=== PATIENT | male | born 1970 | race African-American/Black ===

== ENCOUNTER 2019-04-28 17:43 | Inpatient (IN) | payer OTHER ==
[2019-04-28 20:27] VITALS: BMI 25.1
--- NOTE | 2019-04-28 22:32 | HP ---
CIWA Score Nausea/Vomitin-No Nausea/No Vomiting Muscle Tremors: None Anxiety: 0-No Anxiety, at Ease Agitation: 1-Slight > Activity Paroxysmal Sweats: No Perspiration Orientation: 0-Oriented Tacttile Disturbances: 0-None Auditory Disturbances: 0-None Visual Disturbances: 0-None Headache: 0-None Present CIWA-Ar Total Score: 1 - Admission Criteria [facility]AS[facility] Guidelines: Admission for Medically Managed Detox: Requires at least one of the followin. CIWA greater than 12 2. Seizures within the past 24 hours 3. Delirium tremens within the past 24 hours 4. Hallucinations within the past 24 hours 5. Acute intervention needed for co occurring medical disorder 6. Acute intervention needed for co occurring psychiatric disorder 7. Severe withdrawal that cannot be handled at a lower level of care (continued vomiting, continued diarrhea, abnormal vital signs) requiring intravenous medication and/or fluids 8. [facility] Chief Complaint: seeking rehab for alcohol abuse and cocaine dependence Allergies/Adverse Reactions: Allergies Allergy/AdvReac Type Severity Reaction Status Date / Time No Known Allergies Allergy Verified 04/28/19 20:14 History of Present Illness: 48 Y.O. MALE WITH HX/O ALCOHOLISM AND COCAINE DEPENDENCE HERE FOR REHAB. CLIENT REPORTS HIS LAST DRINK WAS 1 WEEK AGO PRIOR TO 1 DAY AGO WHEN HE HAD 1 CAN OF BEER. HE REPORTS HE USUALLY DRINKS 3 X A WEEK 1 PINT OF VODKA. HE PRESENTLY DENIES ANY WITHDRAWAL SX'. DENIES HX/O BLACKOUTS/ SEIZURES. REPORTS LONGEST CLEAN TIME 1 YEAR. RELAPSING IN 2012. WITH INTERMITTENT SHORT PERIOD OF CLEAN TIME SINCE. 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, PUBLIC ASSISTANCE, DENIES PMHX- RIGHT INGUINAL HERNIA, DM, HLD PSYCH- DEPRESSION,SCHIZOAFFECTIVE D/O Exam Limitations: No Limitations - Ebola screening Have you traveled outside of the country in the last 21 days: No (N) Have you had contact with anyone from an Ebola affected area: No Do you have a fever: No - Review of Systems Constitutional: Changes in sleep (DUE PAIN) EENT: reports: Other (DENTURES BOTH) Respiratory: reports: No Symptoms reported Cardiac: reports: No Symptoms Reported GI: reports: No Symptoms Reported : reports: No Symptoms Reported Musculoskeletal: reports: No Symptoms Reported Integumentary: reports: No Symptoms Reported Neuro: reports: Unsteady Gait ([place] WITH CANE DUE TO R GROIN PAIN) Endocrine: reports: Other (HX/O DM) Hematology: reports: No Symptoms Reported Psychiatric: reports: Orientated x3 Other Systems: Reviewed and Negative Patient History - Patient Medical History Hx Anemia: No Hx Asthma: No Hx Chronic Obstructive Pulmonary Disease (COPD): No Hx Cancer: No Hx Cardiac Disorders: No Hx Congestive Heart Failure: No Hx Hypertension: No Hx Hypercholesterolemia: Yes Hx Pacemaker: No HX Cerebrovascular Accident: No Hx Seizures: No Hx Dementia: No Hx Diabetes: Yes Hx Gastrointestinal Disorders: No Hx Liver Disease: No Hx Genitourinary Disorders: No Hx Sexually Transmitted Disorders: No Hx Renal Disease (ESRD): No Hx Thyroid Disease: No Hx Human Immunodeficiency Virus (HIV): No Hx Hepatitis C: No Hx Depression: Yes Hx Suicide Attempt: No Hx Bipolar Disorder: No Hx Schizophrenia: No Other Medical History: SCHIZOAFFECTIVE, R INGUINAL HERNIA - Patient Surgical History Past Surgical History: No - PPD History Previous Implant?: Yes Documented Results: Negative w/proof Implanted On Prior [facility] Admission?: No PPD to be Administered?: Yes - Smoking Cessation Smoking history: Former smoker Have you smoked in the past 12 months: No If you are a former smoker, when did you quit?: 1992 Hx Chewing Tobacco Use: No Initiated information on smoking cessation: No - Substance & Tx. History Hx Alcohol Use: Yes Hx Substance Use: Yes Substance Use Type: Alcohol, Cocaine Hx Substance Use Treatment: Yes ([facility]) - Substances abused Alcohol Substance route: Oral Frequency: 3-6 times per week Amount used: 1-2pints of vodka 3x a week Age of first use: 15 Date of last use: 04/27/19 Cocaine Other (specify): CRACK Substance route: Smoking (AND NASALLY) Frequency: 3-6 times per week Amount used: $200 Age of first use: 15 Date of last use: 04/25/19 Family Disease History - Family Disease History Family History: Denies Admission Physical Exam S - Vital Signs Vital Signs: Vital Signs - 24 hr 04/28/19 20:24 Temperature 97.1 F L Pulse Rate 54 L Respiratory 16 Rate Blood Pressure 114/66 - Physical General Appearance: Yes: Mild Distress (DUE TO R GROIN PAIN CLIENT WAS SEEN AT [facility] ER NO INTERVENTION HE WAS SEEN BY SURGICAL TEAM AT [facility] HE WAS ADMITTED ON 02/2019 AND SX INTERVENTION WAS RECOMMENDED) HEENTM: Yes: EOMI, Normocephalic, Normal Voice, MARY KAY, Pharynx Normal, Other ( DENTURES BOTH) Respiratory: Yes: Chest Non-Tender, Lungs Clear, Normal Breath Sounds, No Respiratory Distress, No Accessory Muscle Use Neck: Yes: No masses,lesions,Nodules, Supple, Trachea in good position Breast: Yes: Breast Exam Deferred Cardiology: Yes: Regular Rhythm, Regular Rate, S1, S2 Abdominal: Yes: Normal Bowel Sounds, Non Tender, Flat, Soft, Organomegaly Genitourinary: Yes: Within Normal Limits Back: Yes: Normal Inspection Musculoskeletal: Yes: Other (AMBULATES WITH CANE 2/2 TO R INGUINAL PAIN) Extremities: Yes: Normal Capillary Refill, Non-Tender, Other (LIMITED ROM TO LEFT LOWER EXTREMITY DUE TO PAIN) Neurological: Yes: Fully Oriented, Alert, Motor Strength 5/5 Integumentary: Yes: Dry, Warm Lymphatic: Yes: Within Normal Limits, Tenderness (R INGUINAL DUE TO HERNIA) - Diagnostic (1) Uncomplicated alcohol dependence Current Visit: Yes Status: Acute (2) Cocaine dependence, uncomplicated Current Visit: Yes Status: Chronic (3) Nicotine dependence Current Visit: Yes Status: Chronic Qualifiers: Nicotine product type: cigarettes Substance use status: uncomplicated Qualified Code(s): F17.210 - Nicotine dependence, cigarettes, uncomplicated (4) HLD (hyperlipidemia) Current Visit: Yes Status: Chronic (5) HTN (hypertension) Current Visit: Yes Status: Chronic Qualifiers: Hypertension type: essential hypertension Qualified Code(s): I10 - Essential (primary) hypertension (6) Schizoaffective disorder Current Visit: Yes Status: Chronic (7) Depression Current Visit: Yes Status: Chronic (8) Right inguinal hernia Current Visit: Yes Status: Chronic (9) Ambulates with cane Current Visit: Yes Status: Chronic Cleared for Admission [facility] - Detox or Rehab Detox Regimen/Protocol: Not Applicable Claeared for Rehab Admission: No Breathalyzer - Breathalyzer Breathalyzer: 0 Urine Drug Screen - Test Device Lot number: [id number] Expiration date: 09/06/21 - Results Drug screen NEGATIVE: No Urine drug screen results: NASEEM-Cocaine, MET-Methamphetamine Inpatient Rehab Admission - Rehab Decision to Admit Inpatient rehab admission?: Yes - Initial Determination Are CD services needed?: Yes Free of communicable disease: Yes Not in need of hospitalization: Yes - Rehab Admission Criteria Previous failed treatment: Yes Poor recovery environment: Yes Comorbidities: Yes Lacks judgement: No Patient is meeting Inpatient Rehab admission criteria:: Yes
[2019-04-28] MEDS ORDERED: MAGNESIUM HYDROX 2400MG/30ML ORAL SUSPENSION 30 ML CUP PO PRN (22:41)
[2019-04-28] MEDS ORDERED: LOPERAMIDE HCL 2 MG CAPSULE PO PRN (22:41)
[2019-04-28] MEDS ORDERED: MAGNESIUM CITRATE 300 ML BOTTLE PO PRN (22:41)
[2019-04-28] MEDS ORDERED: guaiFENesin 200 MG/10 ML 10 ML UNIT-DOSE CUPS PO PRN (22:41)
[2019-04-28] MEDS ORDERED: MENTHOL/PHENOL 1 EACH UD MM PRN (22:41)
[2019-04-28] MEDS ORDERED: ACETAMINOPHEN 325 MG TABLET (FP) PO PRN (22:41)
[2019-04-28] MEDS ORDERED: MAG HYDROX/AL HYDROX/SIMETH 30 ML UNIT-DOSE CUP PO PRN (22:41)
[2019-04-28] MEDS ORDERED: hydrOXYzine PAMOATE 50 MG CAPSULE (FP) PO PRN (22:41)
[2019-04-28] MEDS ORDERED: P-EPHED 60MG/TRIPROLIDI 2.5MG TABLET PO PRN (22:41)
[2019-04-29] MEDS: metFORMIN HCL 500 MG TABLET (FP) PO SCH ×2 (07:12→18:47)
[2019-04-29] MEDS ORDERED: metFORMIN HCL 500 MG TABLET (FP) PO SCH (08:00)
[2019-04-29] MEDS: PRENATAL VITAMINS W/ FOLIC ACID TABLET (FP) PO SCH (11:20)
[2019-04-29 12:15] LABS: HEMATOCRIT 38.2 % (35.4-49); HEMOGLOBIN 12.7 GM/dL (11.7-16.9); MCH 29.1 pg (25.7-33.7); MCHC 33.2 g/dl (32.0-35.9); MEAN CELL VOLUME 87.7 fl (80-96); MEAN PLT VOLUME 8.8 fl (7.5-11.1); PLATELET COUNT 200 K/MM3 (134-434); RBC 4.35 M/mm3 (4.00-5.60); RDW 13.6 % (11.9-15.9); WHITE BLOOD COUNT 4.2 K/mm3 (4.0-10.0)
[2019-04-29 12:19] LABS: ALBUMIN 3.3 g/dl (3.4-5.0); BILIRUBIN,TOTAL 0.3 mg/dL (0.2-1); BLOOD UREA NITROGEN 11.2 mg/dL (7-18); CALCIUM 8.8 mg/dL (8.5-10.1); POTASSIUM 4.4 mmol/L (3.5-5.1); TOT PROT 6.2 g/dl (6.4-8.2)
--- NOTE | 2019-04-29 13:43 | EKG ---
Test Reason : Blood Pressure : / mmHG Vent. Rate : 065 BPM Atrial Rate : 065 BPM P-R Int : 228 ms QRS Dur : 096 ms QT Int : 410 ms P-R-T Axes : 072 068 069 degrees QTc Int : 426 ms SINUS RHYTHM WITH 1ST DEGREE A-V BLOCK OTHERWISE NORMAL ECG NO PREVIOUS ECGS AVAILABLE Confirmed by Paul San MD ([id number]) on 04/29/2019 1:42:31 PM Referred By: Confirmed By:Paul San MD
[2019-04-29] MEDS: MELATONIN 5 MG TABLETS PO PRN (21:34)
[2019-04-29] MEDS: ATORVASTATIN CA 20 MG TABLET (FP) PO SCH (21:34)
[2019-04-29] MEDS: THIAMINE HCL 100 MG TABLET (FP) PO SCH (21:34)
[2019-04-30] MEDS: metFORMIN HCL 500 MG TABLET (FP) PO SCH ×2 (07:28→17:49)
[2019-04-30] MEDS: PRENATAL VITAMINS W/ FOLIC ACID TABLET (FP) PO SCH (10:27)
[2019-04-30 12:48] LABS: PH,URINE 7.5 (5.0-8.0); URINE APPEARANCE CLEAR; URINE BILIRUBIN NEGATIVE (NEGATIVE); URINE COLOR YELLOW; URINE GLUCOSE (UA) 1+ (NEGATIVE); URINE KETONE NEGATIVE (NEGATIVE); URINE LEUK ESTERASE NEGATIVE (NEGATIVE); URINE NITRITE NEGATIVE (NEGATIVE); URINE PROTEIN NEGATIVE (NEGATIVE); URINE UROBILINOGEN 0.2 mg/dL (0.2-1.0)
[2019-04-30] MEDS: ATORVASTATIN CA 20 MG TABLET (FP) PO SCH (21:19)
[2019-04-30] MEDS: MELATONIN 5 MG TABLETS PO PRN (21:19)
[2019-04-30] MEDS: THIAMINE HCL 100 MG TABLET (FP) PO SCH (21:19)
[2019-04-30] MEDS: IBUPROFEN 400 MG TABLET (FP) PO PRN (21:20)
[2019-05-01] MEDS: metFORMIN HCL 500 MG TABLET (FP) PO SCH ×2 (07:38→16:48)
[2019-05-01] MEDS: IBUPROFEN 400 MG TABLET (FP) PO PRN (09:38)
[2019-05-01] MEDS: PRENATAL VITAMINS W/ FOLIC ACID TABLET (FP) PO SCH (09:38)
[2019-05-01] MEDS: THIAMINE HCL 100 MG TABLET (FP) PO SCH (21:38)
[2019-05-01] MEDS: MELATONIN 5 MG TABLETS PO PRN (21:38)
[2019-05-01] MEDS: ATORVASTATIN CA 20 MG TABLET (FP) PO SCH (21:38)
[2019-05-02] MEDS: metFORMIN HCL 500 MG TABLET (FP) PO SCH ×2 (07:38→16:53)
[2019-05-02] MEDS: PRENATAL VITAMINS W/ FOLIC ACID TABLET (FP) PO SCH (10:55)
[2019-05-02] MEDS: MELATONIN 5 MG TABLETS PO PRN (21:13)
[2019-05-02] MEDS: THIAMINE HCL 100 MG TABLET (FP) PO SCH (21:13)
[2019-05-02] MEDS: IBUPROFEN 400 MG TABLET (FP) PO PRN (21:14)
[2019-05-02] MEDS: ATORVASTATIN CA 20 MG TABLET (FP) PO SCH (21:14)
[2019-05-03] MEDS: metFORMIN HCL 500 MG TABLET (FP) PO SCH ×2 (06:20→16:54)
[2019-05-03] MEDS: PRENATAL VITAMINS W/ FOLIC ACID TABLET (FP) PO SCH (09:26)
[2019-05-03] MEDS: IBUPROFEN 400 MG TABLET (FP) PO PRN (21:33)
[2019-05-03] MEDS: ATORVASTATIN CA 20 MG TABLET (FP) PO SCH (21:33)
[2019-05-03] MEDS: THIAMINE HCL 100 MG TABLET (FP) PO SCH (21:33)
[2019-05-03] MEDS: MELATONIN 5 MG TABLETS PO PRN (21:33)
[2019-05-04] MEDS: metFORMIN HCL 500 MG TABLET (FP) PO SCH ×2 (07:35→17:01)
[2019-05-04] MEDS: PRENATAL VITAMINS W/ FOLIC ACID TABLET (FP) PO SCH (09:49)
[2019-05-04] MEDS: IBUPROFEN 400 MG TABLET (FP) PO PRN (09:50)
[2019-05-04] MEDS: THIAMINE HCL 100 MG TABLET (FP) PO SCH (21:31)
[2019-05-04] MEDS: ATORVASTATIN CA 20 MG TABLET (FP) PO SCH (21:31)
[2019-05-05] MEDS: metFORMIN HCL 500 MG TABLET (FP) PO SCH ×2 (07:35→16:46)
[2019-05-05] MEDS: PRENATAL VITAMINS W/ FOLIC ACID TABLET (FP) PO SCH (10:00)
--- NOTE | 2019-05-05 13:19 | PN ---
[facility] Progress Note (SOAP) Subjective: Patient quantiferon was positive. Denies night sweats, fevers, productive cough. Objective: General: appropriate affect Respiratory: Lungs Clear, Normal Breath Sounds, No Respiratory Distress, No Accessory Muscle Use Neck: Supple, Trachea in good position Cardiology: Regular Rhythm, Regular Rate, S1, S2 Abdominal: Bowel Sounds, Non Tender, Flat, Soft, Organomegaly Lymph nodes: non-palpable 05/05/19 13:21 Assessment: +quantiferon results 05/05/19 13:23 Plan: CXR ordered.
[2019-05-05] MEDS: ATORVASTATIN CA 20 MG TABLET (FP) PO SCH (21:41)
[2019-05-05] MEDS: THIAMINE HCL 100 MG TABLET (FP) PO SCH (21:41)
[2019-05-05] MEDS: MELATONIN 5 MG TABLETS PO PRN (21:43)
[2019-05-06] MEDS: metFORMIN HCL 500 MG TABLET (FP) PO SCH ×2 (07:36→16:47)
[2019-05-06] MEDS: PRENATAL VITAMINS W/ FOLIC ACID TABLET (FP) PO SCH (10:03)
[2019-05-06] MEDS: THIAMINE HCL 100 MG TABLET (FP) PO SCH (21:19)
[2019-05-06] MEDS: MELATONIN 5 MG TABLETS PO PRN (21:19)
[2019-05-06] MEDS: ATORVASTATIN CA 20 MG TABLET (FP) PO SCH (21:19)
[2019-05-07] MEDS: metFORMIN HCL 500 MG TABLET (FP) PO SCH ×2 (07:23→17:02)
[2019-05-07] MEDS: PRENATAL VITAMINS W/ FOLIC ACID TABLET (FP) PO SCH (10:02)
[2019-05-07] MEDS: ATORVASTATIN CA 20 MG TABLET (FP) PO SCH (21:40)
[2019-05-07] MEDS: MELATONIN 5 MG TABLETS PO PRN (21:40)
[2019-05-07] MEDS: THIAMINE HCL 100 MG TABLET (FP) PO SCH (21:40)
[2019-05-08] MEDS: metFORMIN HCL 500 MG TABLET (FP) PO SCH ×2 (07:33→17:00)
[2019-05-08] MEDS: PRENATAL VITAMINS W/ FOLIC ACID TABLET (FP) PO SCH (09:39)
[2019-05-08] MEDS: THIAMINE HCL 100 MG TABLET (FP) PO SCH (21:25)
[2019-05-08] MEDS: MELATONIN 5 MG TABLETS PO PRN (21:25)
[2019-05-08] MEDS: ATORVASTATIN CA 20 MG TABLET (FP) PO SCH (21:25)
[2019-05-09] MEDS: metFORMIN HCL 500 MG TABLET (FP) PO SCH ×2 (07:33→16:44)
[2019-05-09] MEDS: PRENATAL VITAMINS W/ FOLIC ACID TABLET (FP) PO SCH (10:23)
[2019-05-09] MEDS: ATORVASTATIN CA 20 MG TABLET (FP) PO SCH (21:31)
[2019-05-09] MEDS: THIAMINE HCL 100 MG TABLET (FP) PO SCH (21:31)
[2019-05-09] MEDS: MELATONIN 5 MG TABLETS PO PRN (21:32)
[2019-05-10] MEDS: PRENATAL VITAMINS W/ FOLIC ACID TABLET (FP) PO SCH (09:43)
[2019-05-10] MEDS: metFORMIN HCL 500 MG TABLET (FP) PO SCH ×2 (16:47→17:15)
[2019-05-10] MEDS: ATORVASTATIN CA 20 MG TABLET (FP) PO SCH (21:22)
[2019-05-10] MEDS: THIAMINE HCL 100 MG TABLET (FP) PO SCH (21:23)
[2019-05-11] MEDS: metFORMIN HCL 500 MG TABLET (FP) PO SCH ×2 (07:57→16:56)
[2019-05-11] MEDS: PRENATAL VITAMINS W/ FOLIC ACID TABLET (FP) PO SCH (09:57)
[2019-05-11] MEDS: ATORVASTATIN CA 20 MG TABLET (FP) PO SCH (21:31)
[2019-05-11] MEDS: THIAMINE HCL 100 MG TABLET (FP) PO SCH (21:31)
[2019-05-11] MEDS: MELATONIN 5 MG TABLETS PO PRN (21:31)
[2019-05-12] MEDS: metFORMIN HCL 500 MG TABLET (FP) PO SCH ×2 (07:22→16:48)
[2019-05-12] MEDS: PRENATAL VITAMINS W/ FOLIC ACID TABLET (FP) PO SCH (09:57)
[2019-05-12] MEDS: THIAMINE HCL 100 MG TABLET (FP) PO SCH (21:12)
[2019-05-12] MEDS: ATORVASTATIN CA 20 MG TABLET (FP) PO SCH (21:12)
[2019-05-12] MEDS: MELATONIN 5 MG TABLETS PO PRN (21:13)
[2019-05-13] MEDS: metFORMIN HCL 500 MG TABLET (FP) PO SCH ×2 (07:03→17:00)
[2019-05-13] MEDS: PRENATAL VITAMINS W/ FOLIC ACID TABLET (FP) PO SCH (10:07)
[2019-05-13] MEDS: THIAMINE HCL 100 MG TABLET (FP) PO SCH (21:24)
[2019-05-13] MEDS: ATORVASTATIN CA 20 MG TABLET (FP) PO SCH (21:24)
[2019-05-13] MEDS: MELATONIN 5 MG TABLETS PO PRN (21:24)
[2019-05-14] MEDS: metFORMIN HCL 500 MG TABLET (FP) PO SCH ×2 (07:31→16:34)
[2019-05-14] MEDS: PRENATAL VITAMINS W/ FOLIC ACID TABLET (FP) PO SCH (10:21)
[2019-05-14] MEDS: THIAMINE HCL 100 MG TABLET (FP) PO SCH (21:40)
[2019-05-14] MEDS: MELATONIN 5 MG TABLETS PO PRN (21:40)
[2019-05-14] MEDS: ATORVASTATIN CA 20 MG TABLET (FP) PO SCH (21:40)
[2019-05-15] MEDS: metFORMIN HCL 500 MG TABLET (FP) PO SCH ×2 (06:28→16:41)
[2019-05-15] MEDS: PRENATAL VITAMINS W/ FOLIC ACID TABLET (FP) PO SCH (10:55)
[2019-05-15] MEDS: THIAMINE HCL 100 MG TABLET (FP) PO SCH (21:22)
[2019-05-15] MEDS: MELATONIN 5 MG TABLETS PO PRN (21:22)
[2019-05-15] MEDS: ATORVASTATIN CA 20 MG TABLET (FP) PO SCH (21:22)
[2019-05-16] MEDS: metFORMIN HCL 500 MG TABLET (FP) PO SCH ×2 (06:54→16:40)
[2019-05-16] MEDS: PRENATAL VITAMINS W/ FOLIC ACID TABLET (FP) PO SCH (10:39)
[2019-05-16] MEDS: MELATONIN 5 MG TABLETS PO PRN (21:36)
[2019-05-16] MEDS: ATORVASTATIN CA 20 MG TABLET (FP) PO SCH (21:36)
[2019-05-16] MEDS: THIAMINE HCL 100 MG TABLET (FP) PO SCH (21:36)
[2019-05-17] MEDS: metFORMIN HCL 500 MG TABLET (FP) PO SCH ×2 (06:30→17:08)
[2019-05-17] MEDS: PRENATAL VITAMINS W/ FOLIC ACID TABLET (FP) PO SCH (11:15)
[2019-05-17] MEDS: THIAMINE HCL 100 MG TABLET (FP) PO SCH (21:51)
[2019-05-17] MEDS: ATORVASTATIN CA 20 MG TABLET (FP) PO SCH (21:51)
[2019-05-17] MEDS: MELATONIN 5 MG TABLETS PO PRN (21:51)
[2019-05-18] MEDS: metFORMIN HCL 500 MG TABLET (FP) PO SCH ×2 (06:23→16:34)
[2019-05-18] MEDS: PRENATAL VITAMINS W/ FOLIC ACID TABLET (FP) PO SCH (09:49)
[2019-05-18] MEDS: THIAMINE HCL 100 MG TABLET (FP) PO SCH (21:17)
[2019-05-18] MEDS: MELATONIN 5 MG TABLETS PO PRN (21:17)
[2019-05-18] MEDS: ATORVASTATIN CA 20 MG TABLET (FP) PO SCH (21:17)
[2019-05-19] MEDS: metFORMIN HCL 500 MG TABLET (FP) PO SCH ×2 (06:25→16:39)
[2019-05-19] MEDS: PRENATAL VITAMINS W/ FOLIC ACID TABLET (FP) PO SCH (10:05)
[2019-05-19] MEDS: THIAMINE HCL 100 MG TABLET (FP) PO SCH (21:46)
[2019-05-19] MEDS: ATORVASTATIN CA 20 MG TABLET (FP) PO SCH (21:46)
[2019-05-19] MEDS: MELATONIN 5 MG TABLETS PO PRN (21:47)
[2019-05-20] MEDS: metFORMIN HCL 500 MG TABLET (FP) PO SCH ×2 (06:25→16:54)
[2019-05-20] MEDS: PRENATAL VITAMINS W/ FOLIC ACID TABLET (FP) PO SCH (09:48)
[2019-05-20] MEDS: THIAMINE HCL 100 MG TABLET (FP) PO SCH (21:37)
[2019-05-20] MEDS: MELATONIN 5 MG TABLETS PO PRN (21:37)
[2019-05-20] MEDS: ATORVASTATIN CA 20 MG TABLET (FP) PO SCH (21:37)
[2019-05-21] MEDS: metFORMIN HCL 500 MG TABLET (FP) PO SCH ×2 (06:51→16:28)
[2019-05-21] MEDS: PRENATAL VITAMINS W/ FOLIC ACID TABLET (FP) PO SCH (09:57)
[2019-05-21] MEDS: THIAMINE HCL 100 MG TABLET (FP) PO SCH (21:23)
[2019-05-21] MEDS: MELATONIN 5 MG TABLETS PO PRN (21:23)
[2019-05-21] MEDS: ATORVASTATIN CA 20 MG TABLET (FP) PO SCH (21:23)
[2019-05-22] MEDS: metFORMIN HCL 500 MG TABLET (FP) PO SCH ×2 (06:57→16:42)
[2019-05-22] MEDS: PRENATAL VITAMINS W/ FOLIC ACID TABLET (FP) PO SCH (09:56)
[2019-05-22] MEDS: MELATONIN 5 MG TABLETS PO PRN (21:31)
[2019-05-22] MEDS: THIAMINE HCL 100 MG TABLET (FP) PO SCH (21:31)
[2019-05-22] MEDS: ATORVASTATIN CA 20 MG TABLET (FP) PO SCH (21:31)
[2019-05-23] MEDS: metFORMIN HCL 500 MG TABLET (FP) PO SCH ×2 (07:25→16:23)
[2019-05-23] MEDS: PRENATAL VITAMINS W/ FOLIC ACID TABLET (FP) PO SCH (10:07)
[2019-05-23] MEDS: MELATONIN 5 MG TABLETS PO PRN (21:15)
[2019-05-23] MEDS: ATORVASTATIN CA 20 MG TABLET (FP) PO SCH (21:15)
[2019-05-23] MEDS: THIAMINE HCL 100 MG TABLET (FP) PO SCH (21:15)
[2019-05-24] MEDS: metFORMIN HCL 500 MG TABLET (FP) PO SCH ×2 (06:48→17:00)
[2019-05-24] MEDS: PRENATAL VITAMINS W/ FOLIC ACID TABLET (FP) PO SCH (10:50)
[2019-05-24] MEDS: THIAMINE HCL 100 MG TABLET (FP) PO SCH (21:21)
[2019-05-24] MEDS: ATORVASTATIN CA 20 MG TABLET (FP) PO SCH (21:21)
[2019-05-25 06:40] VITALS: TEMP 97.5
[2019-05-25] MEDS: metFORMIN HCL 500 MG TABLET (FP) PO SCH ×2 (06:46→17:00)
[2019-05-25] MEDS: PRENATAL VITAMINS W/ FOLIC ACID TABLET (FP) PO SCH (10:12)
[2019-05-25] MEDS: ATORVASTATIN CA 20 MG TABLET (FP) PO SCH (21:45)
[2019-05-25] MEDS: THIAMINE HCL 100 MG TABLET (FP) PO SCH (21:45)
[2019-05-25] MEDS: MELATONIN 5 MG TABLETS PO PRN (21:46)
[2019-05-26] MEDS: metFORMIN HCL 500 MG TABLET (FP) PO SCH (07:07)
[2019-05-26 07:11] VITALS: BP 139/74; PULSE 82
[2019-05-26] MEDS: PRENATAL VITAMINS W/ FOLIC ACID TABLET (FP) PO SCH (10:39)
--- NOTE | 2019-05-26 12:19 | PN ---
[facility] Progress Note Note: Rehab discharge note: Patient admitted to rehab on 04/28/19 for alcohol and cocaine dependence. Patient completed rehab today and states he accomplished all goals. Patient is scheduled for aftercare at [facility] on 05/28/19 at 10am. Patient was able to attend group meetings and maintain motivation for sobriety during admission. Patient is medically stable and no SI/HI reported. Patient is encouraged to continue group meetings and aftercare to maintain sobriety. ROS : negative for CP, SOB and dizziness Ambulatory Orders Atorvastatin Ca [Lipitor] 20 mg PO HS #30 tablet 05/26/19 metFORMIN HCL [Metformin HCl] 500 mg PO BID #60 tablet 05/26/19 Laboratory Tests 04/29/19 04/29/19 04/29/19 06:40 08:20 08:20 WBC 4.2 RBC 4.35 Hgb 12.7 Hct 38.2 MCV 87.7 MCH 29.1 MCHC 33.2 RDW 13.6 Plt Count 200 MPV 8.8 Sodium 139 Potassium 4.4 Chloride 107 Carbon Dioxide 27 Anion Gap 6 L BUN 11.2 Creatinine 1.0 Est GFR (CKD-EPI)AfAm 101.98 Est GFR (CKD-EPI)NonAf 87.99 POC Glucometer 114 Random Glucose 161 H Calcium 8.8 Total Bilirubin 0.3 AST 12 L ALT 19 Alkaline Phosphatase 143 H Total Protein 6.2 L Albumin 3.3 L Urine Color Urine Appearance Urine pH Ur Specific [place] Urine Protein Urine Glucose (UA) Urine Ketones Urine Blood Urine Nitrite Urine Bilirubin Urine Urobilinogen Ur Leukocyte Esterase RPR Titer TB (QFT) Incubation TB Test (QFT) Nil TB Test (QFT) Mitogen TB Test (QFT) Antigen TB Test (QFT) TB Positive Criteria 04/29/19 04/29/19 04/29/19 08:20 08:20 10:20 WBC RBC Hgb Hct MCV MCH MCHC RDW Plt Count MPV Sodium Potassium Chloride Carbon Dioxide Anion Gap BUN Creatinine Est GFR (CKD-EPI)AfAm Est GFR (CKD-EPI)NonAf POC Glucometer Random Glucose Calcium Total Bilirubin AST ALT Alkaline Phosphatase Total Protein Albumin Urine Color Yellow Urine Appearance Clear Urine pH 7.5 Ur Specific [place] 1.019 Urine Protein Negative Urine Glucose (UA) 1+ H Urine Ketones Negative Urine Blood Negative Urine Nitrite Negative Urine Bilirubin Negative Urine Urobilinogen 0.2 Ur Leukocyte Esterase Negative RPR Titer Nonreactive TB (QFT) Incubation TB Test (QFT) Nil 0.60 TB Test (QFT) Mitogen >10.00 TB Test (QFT) Antigen >10.00 TB Test (QFT) Positive H TB Positive Criteria 04/29/19 04/30/19 04/30/19 16:39 06:18 16:54 WBC RBC Hgb Hct MCV MCH MCHC RDW Plt Count MPV Sodium Potassium Chloride Carbon Dioxide Anion Gap BUN Creatinine Est GFR (CKD-EPI)AfAm Est GFR (CKD-EPI)NonAf POC Glucometer [phone] Random Glucose Calcium Total Bilirubin AST ALT Alkaline Phosphatase Total Protein Albumin Urine Color Urine Appearance Urine pH Ur Specific [place] Urine Protein Urine Glucose (UA) Urine Ketones Urine Blood Urine Nitrite Urine Bilirubin Urine Urobilinogen Ur Leukocyte Esterase RPR Titer TB (QFT) Incubation TB Test (QFT) Nil TB Test (QFT) Mitogen TB Test (QFT) Antigen TB Test (QFT) TB Positive Criteria 05/01/19 05/01/19 05/02/19 06:08 16:42 06:09 WBC RBC Hgb Hct MCV MCH MCHC RDW Plt Count MPV Sodium Potassium Chloride Carbon Dioxide Anion Gap BUN Creatinine Est GFR (CKD-EPI)AfAm Est GFR (CKD-EPI)NonAf POC Glucometer [phone] Random Glucose Calcium Total Bilirubin AST ALT Alkaline Phosphatase Total Protein Albumin Urine Color Urine Appearance Urine pH Ur Specific [place] Urine Protein Urine Glucose (UA) Urine Ketones Urine Blood Urine Nitrite Urine Bilirubin Urine Urobilinogen Ur Leukocyte Esterase RPR Titer TB (QFT) Incubation TB Test (QFT) Nil TB Test (QFT) Mitogen TB Test (QFT) Antigen TB Test (QFT) TB Positive Criteria 05/02/19 05/03/19 05/03/19 16:53 06:19 16:54 WBC RBC Hgb Hct MCV MCH MCHC RDW Plt Count MPV Sodium Potassium Chloride Carbon Dioxide Anion Gap BUN Creatinine Est GFR (CKD-EPI)AfAm Est GFR (CKD-EPI)NonAf POC Glucometer 164 150 177 Random Glucose Calcium Total Bilirubin AST ALT Alkaline Phosphatase Total Protein Albumin Urine Color Urine Appearance Urine pH Ur Specific [place] Urine Protein Urine Glucose (UA) Urine Ketones Urine Blood Urine Nitrite Urine Bilirubin Urine Urobilinogen Ur Leukocyte Esterase RPR Titer TB (QFT) Incubation TB Test (QFT) Nil TB Test (QFT) Mitogen TB Test (QFT) Antigen TB Test (QFT) TB Positive Criteria 05/04/19 05/04/19 05/05/19 06:04 17:08 06:06 WBC RBC Hgb Hct MCV MCH MCHC RDW Plt Count MPV Sodium Potassium Chloride Carbon Dioxide Anion Gap BUN Creatinine Est GFR (CKD-EPI)AfAm Est GFR (CKD-EPI)NonAf POC Glucometer 134 171 184 Random Glucose Calcium Total Bilirubin AST ALT Alkaline Phosphatase Total Protein Albumin Urine Color Urine Appearance Urine pH Ur Specific [place] Urine Protein Urine Glucose (UA) Urine Ketones Urine Blood Urine Nitrite Urine Bilirubin Urine Urobilinogen Ur Leukocyte Esterase RPR Titer TB (QFT) Incubation TB Test (QFT) Nil TB Test (QFT) Mitogen TB Test (QFT) Antigen TB Test (QFT) TB Positive Criteria 05/05/19 05/06/19 05/06/19 16:46 06:05 16:47 WBC RBC Hgb Hct MCV MCH MCHC RDW Plt Count MPV Sodium Potassium Chloride Carbon Dioxide Anion Gap BUN Creatinine Est GFR (CKD-EPI)AfAm Est GFR (CKD-EPI)NonAf POC Glucometer 197 144 132 Random Glucose Calcium Total Bilirubin AST ALT Alkaline Phosphatase Total Protein Albumin Urine Color Urine Appearance Urine pH Ur Specific [place] Urine Protein Urine Glucose (UA) Urine Ketones Urine Blood Urine Nitrite Urine Bilirubin Urine Urobilinogen Ur Leukocyte Esterase RPR Titer TB (QFT) Incubation TB Test (QFT) Nil TB Test (QFT) Mitogen TB Test (QFT) Antigen TB Test (QFT) TB Positive Criteria 05/07/19 05/07/19 05/08/19 06:09 17:01 06:43 WBC RBC Hgb Hct MCV MCH MCHC RDW Plt Count MPV Sodium Potassium Chloride Carbon Dioxide Anion Gap BUN Creatinine Est GFR (CKD-EPI)AfAm Est GFR (CKD-EPI)NonAf POC Glucometer 128 162 162 Random Glucose Calcium Total Bilirubin AST ALT Alkaline Phosphatase Total Protein Albumin Urine Color Urine Appearance Urine pH Ur Specific [place] Urine Protein Urine Glucose (UA) Urine Ketones Urine Blood Urine Nitrite Urine Bilirubin Urine Urobilinogen Ur Leukocyte Esterase RPR Titer TB (QFT) Incubation TB Test (QFT) Nil TB Test (QFT) Mitogen TB Test (QFT) Antigen TB Test (QFT) TB Positive Criteria 0805/09/19 05/09/19 16:48 06:24 16:44 WBC RBC Hgb Hct MCV MCH MCHC RDW Plt Count MPV Sodium Potassium Chloride Carbon Dioxide Anion Gap BUN Creatinine Est GFR (CKD-EPI)AfAm Est GFR (CKD-EPI)NonAf POC Glucometer 154 137 116 Random Glucose Calcium Total Bilirubin AST ALT Alkaline Phosphatase Total Protein Albumin Urine Color Urine Appearance Urine pH Ur Specific [place] Urine Protein Urine Glucose (UA) Urine Ketones Urine Blood Urine Nitrite Urine Bilirubin Urine Urobilinogen Ur Leukocyte Esterase RPR Titer TB (QFT) Incubation TB Test (QFT) Nil TB Test (QFT) Mitogen TB Test (QFT) Antigen TB Test (QFT) TB Positive Criteria 05/10/19 05/10/19 05/11/19 06:14 16:42 06:05 WBC RBC Hgb Hct MCV MCH MCHC RDW Plt Count MPV Sodium Potassium Chloride Carbon Dioxide Anion Gap BUN Creatinine Est GFR (CKD-EPI)AfAm Est GFR (CKD-EPI)NonAf POC Glucometer 139 114 138 Random Glucose Calcium Total Bilirubin AST ALT Alkaline Phosphatase Total Protein Albumin Urine Color Urine Appearance Urine pH Ur Specific [place] Urine Protein Urine Glucose (UA) Urine Ketones Urine Blood Urine Nitrite Urine Bilirubin Urine Urobilinogen Ur Leukocyte Esterase RPR Titer TB (QFT) Incubation TB Test (QFT) Nil TB Test (QFT) Mitogen TB Test (QFT) Antigen TB Test (QFT) TB Positive Criteria 05/12/19 05/12/19 05/13/19 06:24 16:46 06:15 WBC RBC Hgb Hct MCV MCH MCHC RDW Plt Count MPV Sodium Potassium Chloride Carbon Dioxide Anion Gap BUN Creatinine Est GFR (CKD-EPI)AfAm Est GFR (CKD-EPI)NonAf POC Glucometer 153 202 157 Random Glucose Calcium Total Bilirubin AST ALT Alkaline Phosphatase Total Protein Albumin Urine Color Urine Appearance Urine pH Ur Specific [place] Urine Protein Urine Glucose (UA) Urine Ketones Urine Blood Urine Nitrite Urine Bilirubin Urine Urobilinogen Ur Leukocyte Esterase RPR Titer TB (QFT) Incubation TB Test (QFT) Nil TB Test (QFT) Mitogen TB Test (QFT) Antigen TB Test (QFT) TB Positive Criteria 05/13/19 05/14/19 05/14/19 16:58 06:10 16:32 WBC RBC Hgb Hct MCV MCH MCHC RDW Plt Count MPV Sodium Potassium Chloride Carbon Dioxide Anion Gap BUN Creatinine Est GFR (CKD-EPI)AfAm Est GFR (CKD-EPI)NonAf POC Glucometer 154 135 166 Random Glucose Calcium Total Bilirubin AST ALT Alkaline Phosphatase Total Protein Albumin Urine Color Urine Appearance Urine pH Ur Specific [place] Urine Protein Urine Glucose (UA) Urine Ketones Urine Blood Urine Nitrite Urine Bilirubin Urine Urobilinogen Ur Leukocyte Esterase RPR Titer TB (QFT) Incubation TB Test (QFT) Nil TB Test (QFT) Mitogen TB Test (QFT) Antigen TB Test (QFT) TB Positive Criteria 05/15/19 05/15/19 05/16/19 06:27 16:41 06:54 WBC RBC Hgb Hct MCV MCH MCHC RDW Plt Count MPV Sodium Potassium Chloride Carbon Dioxide Anion Gap BUN Creatinine Est GFR (CKD-EPI)AfAm Est GFR (CKD-EPI)NonAf POC Glucometer 163 211 141 Random Glucose Calcium Total Bilirubin AST ALT Alkaline Phosphatase Total Protein Albumin Urine Color Urine Appearance Urine pH Ur Specific [place] Urine Protein Urine Glucose (UA) Urine Ketones Urine Blood Urine Nitrite Urine Bilirubin Urine Urobilinogen Ur Leukocyte Esterase RPR Titer TB (QFT) Incubation TB Test (QFT) Nil TB Test (QFT) Mitogen TB Test (QFT) Antigen TB Test (QFT) TB Positive Criteria 05/16/19 05/17/19 05/17/19 16:38 06:30 17:07 WBC RBC Hgb Hct MCV MCH MCHC RDW Plt Count MPV Sodium Potassium Chloride Carbon Dioxide Anion Gap BUN Creatinine Est GFR (CKD-EPI)AfAm Est GFR (CKD-EPI)NonAf POC Glucometer 209 168 175 Random Glucose Calcium Total Bilirubin AST ALT Alkaline Phosphatase Total Protein Albumin Urine Color Urine Appearance Urine pH Ur Specific [place] Urine Protein Urine Glucose (UA) Urine Ketones Urine Blood Urine Nitrite Urine Bilirubin Urine Urobilinogen Ur Leukocyte Esterase RPR Titer TB (QFT) Incubation TB Test (QFT) Nil TB Test (QFT) Mitogen TB Test (QFT) Antigen TB Test (QFT) TB Positive Criteria 05/18/19 05/18/19 05/19/19 06:23 16:33 06:24 WBC RBC Hgb Hct MCV MCH MCHC RDW Plt Count MPV Sodium Potassium Chloride Carbon Dioxide Anion Gap BUN Creatinine Est GFR (CKD-EPI)AfAm Est GFR (CKD-EPI)NonAf POC Glucometer 204 232 173 Random Glucose Calcium Total Bilirubin AST ALT Alkaline Phosphatase Total Protein Albumin Urine Color Urine Appearance Urine pH Ur Specific [place] Urine Protein Urine Glucose (UA) Urine Ketones Urine Blood Urine Nitrite Urine Bilirubin Urine Urobilinogen Ur Leukocyte Esterase RPR Titer TB (QFT) Incubation TB Test (QFT) Nil TB Test (QFT) Mitogen TB Test (QFT) Antigen TB Test (QFT) TB Positive Criteria 05/19/19 05/20/19 05/20/19 16:38 06:17 16:53 WBC RBC Hgb Hct MCV MCH MCHC RDW Plt Count MPV Sodium Potassium Chloride Carbon Dioxide Anion Gap BUN Creatinine Est GFR (CKD-EPI)AfAm Est GFR (CKD-EPI)NonAf POC Glucometer 260 215 224 Random Glucose Calcium Total Bilirubin AST ALT Alkaline Phosphatase Total Protein Albumin Urine Color Urine Appearance Urine pH Ur Specific [place] Urine Protein Urine Glucose (UA) Urine Ketones Urine Blood Urine Nitrite Urine Bilirubin Urine Urobilinogen Ur Leukocyte Esterase RPR Titer TB (QFT) Incubation TB Test (QFT) Nil TB Test (QFT) Mitogen TB Test (QFT) Antigen TB Test (QFT) TB Positive Criteria 05/21/19 05/21/19 05/22/19 06:04 16:27 06:56 WBC RBC Hgb Hct MCV MCH MCHC RDW Plt Count MPV Sodium Potassium Chloride Carbon Dioxide Anion Gap BUN Creatinine Est GFR (CKD-EPI)AfAm Est GFR (CKD-EPI)NonAf POC Glucometer 170 247 181 Random Glucose Calcium Total Bilirubin AST ALT Alkaline Phosphatase Total Protein Albumin Urine Color Urine Appearance Urine pH Ur Specific [place] Urine Protein Urine Glucose (UA) Urine Ketones Urine Blood Urine Nitrite Urine Bilirubin Urine Urobilinogen Ur Leukocyte Esterase RPR Titer TB (QFT) Incubation TB Test (QFT) Nil TB Test (QFT) Mitogen TB Test (QFT) Antigen TB Test (QFT) TB Positive Criteria 05/22/19 05/23/19 05/23/19 16:40 06:45 16:21 WBC RBC Hgb Hct MCV MCH MCHC RDW Plt Count MPV Sodium Potassium Chloride Carbon Dioxide Anion Gap BUN Creatinine Est GFR (CKD-EPI)AfAm Est GFR (CKD-EPI)NonAf POC Glucometer 243 176 171 Random Glucose Calcium Total Bilirubin AST ALT Alkaline Phosphatase Total Protein Albumin Urine Color Urine Appearance Urine pH Ur Specific [place] Urine Protein Urine Glucose (UA) Urine Ketones Urine Blood Urine Nitrite Urine Bilirubin Urine Urobilinogen Ur Leukocyte Esterase RPR Titer TB (QFT) Incubation TB Test (QFT) Nil TB Test (QFT) Mitogen TB Test (QFT) Antigen TB Test (QFT) TB Positive Criteria 05/24/19 05/24/19 05/25/19 06:10 16:59 05:56 WBC RBC Hgb Hct MCV MCH MCHC RDW Plt Count MPV Sodium Potassium Chloride Carbon Dioxide Anion Gap BUN Creatinine Est GFR (CKD-EPI)AfAm Est GFR (CKD-EPI)NonAf POC Glucometer 174 271 229 Random Glucose Calcium Total Bilirubin AST ALT Alkaline Phosphatase Total Protein Albumin Urine Color Urine Appearance Urine pH Ur Specific [place] Urine Protein Urine Glucose (UA) Urine Ketones Urine Blood Urine Nitrite Urine Bilirubin Urine Urobilinogen Ur Leukocyte Esterase RPR Titer TB (QFT) Incubation TB Test (QFT) Nil TB Test (QFT) Mitogen TB Test (QFT) Antigen TB Test (QFT) TB Positive Criteria 05/25/19 05/26/19 17:00 06:16 WBC RBC Hgb Hct MCV MCH MCHC RDW Plt Count MPV Sodium Potassium Chloride Carbon Dioxide Anion Gap BUN Creatinine Est GFR (CKD-EPI)AfAm Est GFR (CKD-EPI)NonAf POC Glucometer 331 205 Random Glucose Calcium Total Bilirubin AST ALT Alkaline Phosphatase Total Protein Albumin Urine Color Urine Appearance Urine pH Ur Specific [place] Urine Protein Urine Glucose (UA) Urine Ketones Urine Blood Urine Nitrite Urine Bilirubin Urine Urobilinogen Ur Leukocyte Esterase RPR Titer TB (QFT) Incubation TB Test (QFT) Nil TB Test (QFT) Mitogen TB Test (QFT) Antigen TB Test (QFT) TB Positive Criteria PE: alert and oriented x 3 skin warm and dry +perrla, eoms intact bl ext full rom, amb ad alvarado A/P: etoh dependence cocaine dependence Stable for d/c patient to follow up with PCP to continue medical management within 1 week of discharge
== END 2019-05-26 10:25 | disposition home or self-care (01) | DRG 772 ==
LOC: YASAS 17:43 → Y3W 22:37
PROVIDERS: ADMIT Neuromusculoskeletal Medicine & OMM; ATTEND Neuromusculoskeletal Medicine & OMM
PROC: HZ42ZZZ Group Counseling for Substance Abuse Treatment, Cognitive-Behavioral (ICD-10-PCS; principal; 2019-04-28)
DX: F10.20 Alcohol dependence, uncomplicated (principal); F14.20 Cocaine dependence, uncomplicated; F17.210 Nicotine dependence, cigarettes, uncomplicated; F25.9 Schizoaffective disorder, unspecified; F32.9 Major depressive disorder, single episode, unspecified; I10 Essential (primary) hypertension; E78.5 Hyperlipidemia, unspecified; E11.9 Type 2 diabetes mellitus without complications; R76.11 Nonspecific reaction to tuberculin skin test without active tuberculosis; K40.90 Unilateral inguinal hernia, without obstruction or gangrene, not specified as recurrent; R26.2 Difficulty in walking, not elsewhere classified; Z99.89 Dependence on other enabling machines and devices; Z79.84 Long term (current) use of oral hypoglycemic drugs
CPT/HCPCS: 36415; 71046-TC-FY; 80053; 81003; 82962; 85027; 86480; 86593; 93005; 93010

== ENCOUNTER 2022-02-13 12:44 | Inpatient (IN) | payer OTHER ==
[2022-02-13] MEDS ORDERED: DICYCLOMINE HCL 10 MG CAPSULE PO PRN (13:26)
[2022-02-13] MEDS ORDERED: ONDANSETRON *ODT* 4 MG TABLET SL PRN (13:26)
[2022-02-13] MEDS ORDERED: BENZOCAINE/MENTHOL (CHLORASEPTIC ) LOZENGE MM PRN (13:26)
[2022-02-13] MEDS ORDERED: ACETAMINOPHEN 325 MG TABLET (FP) PO PRN ×2 (13:26)
[2022-02-13] MEDS ORDERED: MAGNESIUM CITRATE 300 ML BOTTLE PO PRN (13:26)
[2022-02-13] MEDS ORDERED: BISMUTH SUBSALICYLATE 262 MG/15 ML BTL PO PRN (13:26)
[2022-02-13] MEDS ORDERED: LOPERAMIDE HCL 2 MG CAPSULE PO PRN (13:26)
[2022-02-13] MEDS ORDERED: METHOCARBAMOL 500 MG TABLET PO PRN (13:26)
[2022-02-13] MEDS ORDERED: MAG HYDROX/AL HYDROX/SIMETH 30 ML UNIT-DOSE CUP PO PRN (13:26)
[2022-02-13] MEDS ORDERED: MAGNESIUM HYDROX 2400MG/30ML ORAL SUSPENSION 30 ML CUP PO PRN (13:26)
[2022-02-13 14:17] VITALS: BMI 24.7
[2022-02-13] MEDS ORDERED: chlordiazePOXIDE HCL 25 MG CAPSULE PO PRN (15:41)
[2022-02-13] MEDS: metFORMIN HCL 500 MG TABLET (FP) PO SCH ×2 (17:33→17:34)
[2022-02-13] MEDS: hydrOXYzine PAMOATE 25 MG CAPSULE (FP) PO SCH ×3 (17:35→22:55)
[2022-02-13] MEDS: INSULIN SLIDING SCALE (NOVOLOG) 1 VIAL SQ SCH (17:35)
[2022-02-13] MEDS: chlordiazePOXIDE HCL 25 MG CAPSULE PO SCH ×2 (17:36→22:55)
[2022-02-13] MEDS: IBUPROFEN 400 MG TABLET (FP) PO PRN (22:53)
[2022-02-13] MEDS: THIAMINE HCL 100 MG TABLET (FP) PO SCH (22:55)
[2022-02-13] MEDS: MELATONIN 5 MG TABLETS PO SCH (22:55)
[2022-02-14] MEDS: chlordiazePOXIDE HCL 25 MG CAPSULE PO SCH ×4 (06:36→22:47)
[2022-02-14] MEDS: metFORMIN HCL 500 MG TABLET (FP) PO SCH ×3 (06:36→17:55)
[2022-02-14] MEDS: hydrOXYzine PAMOATE 25 MG CAPSULE (FP) PO SCH ×5 (06:36→22:47)
[2022-02-14] MEDS: INSULIN SLIDING SCALE (NOVOLOG) 1 VIAL SQ SCH ×2 (06:55→17:26)
[2022-02-14] MEDS: PRENATAL VITAMINS W/ FOLIC ACID TABLET (FP) PO SCH (10:35)
[2022-02-14 11:27] LABS: HEMATOCRIT 37.8 % (35.4-49); HEMOGLOBIN 12.8 GM/dL (11.7-16.9); MCH 29.9 pg (25.7-33.7); MEAN PLT VOLUME 9.1 fl (7.5-11.1); PLATELET COUNT 178 10^3/uL (134-434); RBC 4.29 M/mm3 (4.00-5.60); RDW 14.2 % (11.9-15.9); WHITE BLOOD COUNT 3.4 K/mm3 (4.0-10.0)
[2022-02-14 12:14] LABS: BLOOD UREA NITROGEN 15.7 mg/dL (7-18); CALCIUM 9.2 mg/dL (8.5-10.1)
[2022-02-14 12:15] LABS: ALBUMIN 3.8 g/dl (3.4-5.0)
[2022-02-14 12:17] LABS: CREATININE 1.1 mg/dL (0.55-1.3)
[2022-02-14 12:19] LABS: TOT PROT 6.8 g/dl (6.4-8.2)
[2022-02-14 12:21] LABS: BILIRUBIN,TOTAL 0.4 mg/dL (0.2-1)
[2022-02-14] MEDS ORDERED: metFORMIN HCL 500 MG TABLET (FP) PO SCH (16:56)
[2022-02-14] MEDS: THIAMINE HCL 100 MG TABLET (FP) PO SCH (22:47)
[2022-02-14] MEDS: ARIPiprazole 15 MG TABLET PO SCH (22:47)
[2022-02-14] MEDS: MELATONIN 5 MG TABLETS PO SCH (22:47)
[2022-02-15] MEDS: hydrOXYzine PAMOATE 25 MG CAPSULE (FP) PO SCH ×5 (05:25→23:13)
[2022-02-15] MEDS: chlordiazePOXIDE HCL 25 MG CAPSULE PO SCH ×4 (05:26→23:12)
[2022-02-15] MEDS: INSULIN SLIDING SCALE (NOVOLOG) 1 VIAL SQ SCH ×2 (06:35→18:23)
[2022-02-15] MEDS: metFORMIN HCL 500 MG TABLET (FP) PO SCH ×2 (06:37→18:22)
[2022-02-15] MEDS: SERTRALINE HCL 50 MG TABLET (FP) PO SCH (10:36)
[2022-02-15] MEDS: PRENATAL VITAMINS W/ FOLIC ACID TABLET (FP) PO SCH (10:36)
[2022-02-15 14:08] LABS: SARS-CoV-2 NAA Not Detected (Not Detected)
[2022-02-15] MEDS: THIAMINE HCL 100 MG TABLET (FP) PO SCH (23:08)
[2022-02-15] MEDS: MELATONIN 5 MG TABLETS PO SCH (23:13)
[2022-02-15] MEDS: ARIPiprazole 15 MG TABLET PO SCH (23:13)
[2022-02-16] MEDS ORDERED: chlordiazePOXIDE HCL 10 MG CAPSULE PO PRN
[2022-02-16] MEDS: hydrOXYzine PAMOATE 25 MG CAPSULE (FP) PO SCH ×5 (05:11→22:47)
[2022-02-16] MEDS: chlordiazePOXIDE HCL 10 MG CAPSULE PO SCH ×4 (05:12→22:47)
[2022-02-16] MEDS: INSULIN SLIDING SCALE (NOVOLOG) 1 VIAL SQ SCH ×2 (07:56→17:59)
[2022-02-16] MEDS: metFORMIN HCL 500 MG TABLET (FP) PO SCH ×2 (07:56→18:04)
[2022-02-16] MEDS: PRENATAL VITAMINS W/ FOLIC ACID TABLET (FP) PO SCH (10:13)
[2022-02-16] MEDS: SERTRALINE HCL 50 MG TABLET (FP) PO SCH (10:14)
[2022-02-16] MEDS: IBUPROFEN 400 MG TABLET (FP) PO PRN (10:15)
[2022-02-16] MEDS: THIAMINE HCL 100 MG TABLET (FP) PO SCH (22:48)
[2022-02-16] MEDS: MELATONIN 5 MG TABLETS PO SCH (22:48)
[2022-02-16] MEDS: ARIPiprazole 15 MG TABLET PO SCH (22:48)
[2022-02-17] MEDS: chlordiazePOXIDE HCL 10 MG CAPSULE PO SCH ×2 (05:39→17:11)
[2022-02-17] MEDS: hydrOXYzine PAMOATE 25 MG CAPSULE (FP) PO SCH ×5 (05:39→23:06)
[2022-02-17] MEDS: metFORMIN HCL 500 MG TABLET (FP) PO SCH ×2 (06:30→17:14)
[2022-02-17] MEDS: INSULIN SLIDING SCALE (NOVOLOG) 1 VIAL SQ SCH ×2 (06:30→17:14)
[2022-02-17] MEDS: PRENATAL VITAMINS W/ FOLIC ACID TABLET (FP) PO SCH (10:43)
[2022-02-17] MEDS: SERTRALINE HCL 50 MG TABLET (FP) PO SCH (10:43)
[2022-02-17 17:30] VITALS: TEMP 97.3
[2022-02-17 21:55] VITALS: BP 134/70; PULSE 82
[2022-02-17] MEDS: THIAMINE HCL 100 MG TABLET (FP) PO SCH (23:06)
[2022-02-17] MEDS: MELATONIN 5 MG TABLETS PO SCH (23:06)
[2022-02-17] MEDS: ARIPiprazole 15 MG TABLET PO SCH (23:06)
[2022-02-18] MEDS ORDERED: chlordiazePOXIDE HCL 10 MG CAPSULE PO ONE (05:00)
== END 2022-02-17 23:28 | disposition other institution (70) | DRG 774 ==
LOC: YASAS 12:44 → Y3N 15:48
PROVIDERS: ADMIT Allergy & Immunology; ATTEND Surgery
PROC: HZ2ZZZZ Detoxification Services for Substance Abuse Treatment (ICD-10-PCS; principal; 2022-02-13)
DX: F10.230 Alcohol dependence with withdrawal, uncomplicated (principal); F14.20 Cocaine dependence, uncomplicated; F25.9 Schizoaffective disorder, unspecified; I10 Essential (primary) hypertension; E78.5 Hyperlipidemia, unspecified; E11.9 Type 2 diabetes mellitus without complications; Z79.84 Long term (current) use of oral hypoglycemic drugs; R26.89 Other abnormalities of gait and mobility; Z99.89 Dependence on other enabling machines and devices
CPT/HCPCS: 36415; 71046-TC-FY; 80053; 82962; 85027; 86780; 87811; C9803-CS; U0003; U0005

== ENCOUNTER 2022-02-17 23:44 | Inpatient (IN) | payer OTHER ==
[2022-02-18] MEDS ORDERED: LOPERAMIDE HCL 2 MG CAPSULE PO PRN (05:18)
[2022-02-18] MEDS ORDERED: MAG HYDROX/AL HYDROX/SIMETH 30 ML UNIT-DOSE CUP PO PRN (05:18)
[2022-02-18] MEDS ORDERED: P-EPHED 60MG/TRIPROLIDI 2.5MG TABLET PO PRN (05:18)
[2022-02-18] MEDS ORDERED: hydrOXYzine PAMOATE 25 MG CAPSULE (FP) PO PRN (05:18)
[2022-02-18] MEDS ORDERED: MAGNESIUM HYDROX 2400MG/30ML ORAL SUSPENSION 30 ML CUP PO PRN (05:18)
[2022-02-18] MEDS ORDERED: guaiFENesin 200 MG/10 ML 10 ML UNIT-DOSE CUPS PO PRN (05:18)
[2022-02-18] MEDS ORDERED: BENZOCAINE/MENTHOL (CHLORASEPTIC ) LOZENGE MM PRN (05:18)
[2022-02-18] MEDS ORDERED: MAGNESIUM CITRATE 300 ML BOTTLE PO PRN (05:18)
[2022-02-18] MEDS: IBUPROFEN 400 MG TABLET (FP) PO PRN (06:18)
[2022-02-18] MEDS ORDERED: NABUMETONE 750 MG TABLET PO SCH (10:00)
[2022-02-18] MEDS: PRENATAL VITAMINS W/ FOLIC ACID TABLET (FP) PO SCH (10:14)
[2022-02-18] MEDS: SERTRALINE HCL 50 MG TABLET (FP) PO SCH (14:28)
[2022-02-18] MEDS: ARIPiprazole 15 MG TABLET PO SCH (21:30)
[2022-02-18] MEDS: ATORVASTATIN CA 20 MG TABLET (FP) PO SCH (21:30)
[2022-02-18] MEDS: THIAMINE HCL 100 MG TABLET (FP) PO SCH (21:30)
[2022-02-18] MEDS: MELATONIN 5 MG TABLETS PO SCH (21:30)
[2022-02-19] MEDS: PRENATAL VITAMINS W/ FOLIC ACID TABLET (FP) PO SCH (10:05)
[2022-02-19] MEDS: SERTRALINE HCL 50 MG TABLET (FP) PO SCH (10:05)
[2022-02-19] MEDS: THIAMINE HCL 100 MG TABLET (FP) PO SCH (21:13)
[2022-02-19] MEDS: ATORVASTATIN CA 20 MG TABLET (FP) PO SCH (21:13)
[2022-02-19] MEDS: ARIPiprazole 15 MG TABLET PO SCH (21:13)
[2022-02-19] MEDS: MELATONIN 5 MG TABLETS PO SCH (21:13)
[2022-02-19] MEDS: IBUPROFEN 400 MG TABLET (FP) PO PRN (21:14)
[2022-02-20] MEDS: IBUPROFEN 400 MG TABLET (FP) PO PRN (06:02)
[2022-02-20] MEDS: PRENATAL VITAMINS W/ FOLIC ACID TABLET (FP) PO SCH (10:35)
[2022-02-20] MEDS: SERTRALINE HCL 50 MG TABLET (FP) PO SCH (10:35)
[2022-02-20] MEDS ORDERED: METHOCARBAMOL 500 MG TABLET PO PRN (12:06)
[2022-02-20 16:09] LABS: SARS-CoV-2 NAA Not Detected (Not Detected)
[2022-02-20] MEDS: THIAMINE HCL 100 MG TABLET (FP) PO SCH (21:24)
[2022-02-20] MEDS: MELATONIN 5 MG TABLETS PO SCH (21:24)
[2022-02-20] MEDS: ATORVASTATIN CA 20 MG TABLET (FP) PO SCH (21:24)
[2022-02-20] MEDS: ARIPiprazole 15 MG TABLET PO SCH (22:24)
[2022-02-21] MEDS: PRENATAL VITAMINS W/ FOLIC ACID TABLET (FP) PO SCH (09:57)
[2022-02-21] MEDS: IBUPROFEN 400 MG TABLET (FP) PO PRN (09:57)
[2022-02-21] MEDS: SERTRALINE HCL 50 MG TABLET (FP) PO SCH (09:57)
[2022-02-21] MEDS: NAPROXEN 500 MG TABLET PO SCH ×2 (12:14→21:11)
[2022-02-21] MEDS: MELATONIN 5 MG TABLETS PO SCH (21:10)
[2022-02-21] MEDS: THIAMINE HCL 100 MG TABLET (FP) PO SCH (21:10)
[2022-02-21] MEDS: ATORVASTATIN CA 20 MG TABLET (FP) PO SCH (21:11)
[2022-02-21] MEDS: ARIPiprazole 15 MG TABLET PO SCH (21:11)
[2022-02-22] MEDS: NAPROXEN 500 MG TABLET PO SCH ×2 (10:02→21:02)
[2022-02-22] MEDS: SERTRALINE HCL 50 MG TABLET (FP) PO SCH (10:02)
[2022-02-22] MEDS: PRENATAL VITAMINS W/ FOLIC ACID TABLET (FP) PO SCH (10:03)
[2022-02-22] MEDS: ATORVASTATIN CA 20 MG TABLET (FP) PO SCH (21:01)
[2022-02-22] MEDS: ARIPiprazole 15 MG TABLET PO SCH (21:01)
[2022-02-22] MEDS: MELATONIN 5 MG TABLETS PO SCH (21:02)
[2022-02-22] MEDS: THIAMINE HCL 100 MG TABLET (FP) PO SCH (21:02)
[2022-02-23] MEDS: PRENATAL VITAMINS W/ FOLIC ACID TABLET (FP) PO SCH (09:59)
[2022-02-23] MEDS: SERTRALINE HCL 50 MG TABLET (FP) PO SCH (09:59)
[2022-02-23] MEDS: NAPROXEN 500 MG TABLET PO SCH ×2 (10:00→21:16)
[2022-02-23] MEDS: ATORVASTATIN CA 20 MG TABLET (FP) PO SCH (21:15)
[2022-02-23] MEDS: THIAMINE HCL 100 MG TABLET (FP) PO SCH (21:16)
[2022-02-23] MEDS: ARIPiprazole 15 MG TABLET PO SCH (21:16)
[2022-02-23] MEDS: MELATONIN 5 MG TABLETS PO SCH (21:16)
[2022-02-24] MEDS: SERTRALINE HCL 50 MG TABLET (FP) PO SCH (10:01)
[2022-02-24] MEDS: PRENATAL VITAMINS W/ FOLIC ACID TABLET (FP) PO SCH (10:01)
[2022-02-24] MEDS: NAPROXEN 500 MG TABLET PO SCH ×2 (10:02→21:04)
[2022-02-24] MEDS: THIAMINE HCL 100 MG TABLET (FP) PO SCH (21:03)
[2022-02-24] MEDS: ATORVASTATIN CA 20 MG TABLET (FP) PO SCH (21:03)
[2022-02-24] MEDS: MELATONIN 5 MG TABLETS PO SCH (21:03)
[2022-02-24] MEDS: ARIPiprazole 15 MG TABLET PO SCH (21:04)
[2022-02-25] MEDS: PRENATAL VITAMINS W/ FOLIC ACID TABLET (FP) PO SCH (10:27)
[2022-02-25] MEDS: SERTRALINE HCL 50 MG TABLET (FP) PO SCH (10:27)
[2022-02-25] MEDS: NAPROXEN 500 MG TABLET PO SCH ×2 (10:27→21:10)
[2022-02-25] MEDS: ACETAMINOPHEN 325 MG TABLET (FP) PO PRN (16:30)
[2022-02-25] MEDS: ATORVASTATIN CA 20 MG TABLET (FP) PO SCH (21:10)
[2022-02-25] MEDS: THIAMINE HCL 100 MG TABLET (FP) PO SCH (21:10)
[2022-02-25] MEDS: ARIPiprazole 15 MG TABLET PO SCH (21:10)
[2022-02-25] MEDS: MELATONIN 5 MG TABLETS PO SCH (21:10)
[2022-02-26] MEDS: PRENATAL VITAMINS W/ FOLIC ACID TABLET (FP) PO SCH (10:31)
[2022-02-26] MEDS: NAPROXEN 500 MG TABLET PO SCH ×2 (10:31→21:17)
[2022-02-26] MEDS: SERTRALINE HCL 50 MG TABLET (FP) PO SCH (10:31)
[2022-02-26] MEDS: ATORVASTATIN CA 20 MG TABLET (FP) PO SCH (21:16)
[2022-02-26] MEDS: MELATONIN 5 MG TABLETS PO SCH (21:17)
[2022-02-26] MEDS: ARIPiprazole 15 MG TABLET PO SCH (21:17)
[2022-02-26] MEDS: THIAMINE HCL 100 MG TABLET (FP) PO SCH (21:17)
[2022-02-27] MEDS: ACETAMINOPHEN 325 MG TABLET (FP) PO PRN (01:22)
[2022-02-27] MEDS: PRENATAL VITAMINS W/ FOLIC ACID TABLET (FP) PO SCH (10:05)
[2022-02-27] MEDS: NAPROXEN 500 MG TABLET PO SCH (10:05)
[2022-02-27] MEDS: SERTRALINE HCL 50 MG TABLET (FP) PO SCH (10:05)
[2022-02-27] MEDS: NABUMETONE 750 MG TABLET PO SCH ×2 (12:57→21:18)
[2022-02-27] MEDS: ATORVASTATIN CA 20 MG TABLET (FP) PO SCH (21:18)
[2022-02-27] MEDS: ARIPiprazole 15 MG TABLET PO SCH (21:18)
[2022-02-27] MEDS: MELATONIN 5 MG TABLETS PO SCH (21:19)
[2022-02-27] MEDS: THIAMINE HCL 100 MG TABLET (FP) PO SCH (21:19)
[2022-02-28] MEDS: NABUMETONE 750 MG TABLET PO SCH ×2 (10:20→21:03)
[2022-02-28] MEDS: PRENATAL VITAMINS W/ FOLIC ACID TABLET (FP) PO SCH (10:20)
[2022-02-28] MEDS: SERTRALINE HCL 50 MG TABLET (FP) PO SCH (10:21)
[2022-02-28] MEDS: THIAMINE HCL 100 MG TABLET (FP) PO SCH (21:02)
[2022-02-28] MEDS: MELATONIN 5 MG TABLETS PO SCH (21:02)
[2022-02-28] MEDS: ATORVASTATIN CA 20 MG TABLET (FP) PO SCH (21:02)
[2022-02-28] MEDS: ARIPiprazole 15 MG TABLET PO SCH (21:03)
[2022-03-01] MEDS: PRENATAL VITAMINS W/ FOLIC ACID TABLET (FP) PO SCH (10:04)
[2022-03-01] MEDS: SERTRALINE HCL 50 MG TABLET (FP) PO SCH (10:04)
[2022-03-01] MEDS: NABUMETONE 750 MG TABLET PO SCH ×2 (10:05→21:15)
[2022-03-01] MEDS: THIAMINE HCL 100 MG TABLET (FP) PO SCH (21:14)
[2022-03-01] MEDS: ARIPiprazole 15 MG TABLET PO SCH (21:15)
[2022-03-01] MEDS: ATORVASTATIN CA 20 MG TABLET (FP) PO SCH (21:15)
[2022-03-01] MEDS: MELATONIN 5 MG TABLETS PO SCH (21:15)
[2022-03-02] MEDS: PRENATAL VITAMINS W/ FOLIC ACID TABLET (FP) PO SCH (10:28)
[2022-03-02] MEDS: SERTRALINE HCL 50 MG TABLET (FP) PO SCH (10:28)
[2022-03-02] MEDS: NABUMETONE 750 MG TABLET PO SCH ×2 (11:31→21:20)
[2022-03-02] MEDS: ARIPiprazole 15 MG TABLET PO SCH (21:20)
[2022-03-02] MEDS: MELATONIN 5 MG TABLETS PO SCH (21:20)
[2022-03-02] MEDS: THIAMINE HCL 100 MG TABLET (FP) PO SCH (21:20)
[2022-03-02] MEDS: ATORVASTATIN CA 20 MG TABLET (FP) PO SCH (21:20)
[2022-03-03 06:58] VITALS: BP 146/81; PULSE 89; TEMP 97.7
[2022-03-03] MEDS: PRENATAL VITAMINS W/ FOLIC ACID TABLET (FP) PO SCH (09:54)
[2022-03-03] MEDS: NABUMETONE 750 MG TABLET PO SCH (09:54)
[2022-03-03] MEDS: SERTRALINE HCL 50 MG TABLET (FP) PO SCH (09:54)
== END 2022-03-03 10:48 | disposition home or self-care (01) | DRG 772 ==
LOC: YASAS 23:44 → Y3W 23:45
PROVIDERS: ADMIT Allergy & Immunology; ATTEND Psychiatry & Neurology Pain Medicine
PROC: HZ42ZZZ Group Counseling for Substance Abuse Treatment, Cognitive-Behavioral (ICD-10-PCS; principal; 2022-02-17)
DX: F10.20 Alcohol dependence, uncomplicated (principal); F14.20 Cocaine dependence, uncomplicated; F25.9 Schizoaffective disorder, unspecified; F32.A Depression, unspecified; E78.5 Hyperlipidemia, unspecified; E11.9 Type 2 diabetes mellitus without complications; Z79.84 Long term (current) use of oral hypoglycemic drugs; M54.50 Low back pain, unspecified; G89.29 Other chronic pain; R26.89 Other abnormalities of gait and mobility; Z99.89 Dependence on other enabling machines and devices
CPT/HCPCS: 82962; C9803-CS; U0003; U0005